=== PATIENT | female | born 1990 | race Caucasian/White ===

== ENCOUNTER 2017-06-01 01:42 | Emergency (ER) | payer OTHER ==
[~2017-06-01] VITALS: Ht 170.2 cm; Wt 77.3 kg
[2017-06-01] MEDS ORDERED: KETOROLAC TROMETHAMINE 30 MG/ML VIAL IM ONE (03:15)
[2017-06-01 03:32] VITALS: BP 126/75
== END 2017-06-01 03:53 | disposition home or self-care (01) ==
LOC: EDBD 01:43 → EMS 01:43
DX: M62.838 Other muscle spasm (principal)
CPT/HCPCS: 73030; 81025; 96372; 99284; J1885